=== PATIENT | female | born 1970 | race Caucasian/White ===

== ENCOUNTER 2018-04-27 11:31 | Emergency (ER) | payer SELFPAY ==
[2018-04-27 11:32] VITALS: BP 144/72; PULSE 61; RESP 17; TEMP 37.2; O2SAT 99; BMI 35.9
--- NOTE | 2018-04-27 12:11 | ED.DCSUM_ITS ---
- ER Visit Summary Date of Service: 04/27/18 Chief Complaint: Right lower back pain History of Present Illness: The patient is a 47 F right lower back pain that began Marcos night. Denies any falls or trauma. No fever. No dysuria. No hematuria. Pain does not radiate to her right leg. She has had pain like this before secondary to sciatica and also a kidney stone. Denies any prior back surgery. Worse with movement. Physical Examination: Well-appearing middle-age female. Vital signs are she does not look septic or toxic. H EENT exam unremarkable. Neck nontender. Lungs clear to auscultation bilaterally. Heart regular rhythm no murmur. Abdomen soft and nontender. Normal bowel sounds no. 1. No pulsatile mass. She is moving all 4 extremities. They are neurovascularly intact. 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 Dorsi plantar flexion intact. No cauda equina. No saddle anesthesia. Negative straight leg raise. Back exam her spine is completely nontender. Her right SI joint has tenderness to palpation. No CVA tenderness. Exam is consistent with acute sciatica. Test Results: None Emergency Department Course and Treatment: Patient was offered but deferred any medications at this time. Treatment Plan: Naprosyn for pain. Limited Percocet. Disposition: Discharge Impression: Acute right sciatica This note was generated with [employer] dictation software. It may contain incorrect words, spelling, and punctuation that were not noted in review of the chart prior to signing ED Disposition - Plan for ED Patient: Chief Complaint: Back Referrals: Care Physician,No Primary [Primary Care Provider] -
--- NOTE | 2018-04-27 12:11 | ED.DEP ---
ED Disposition - Plan for ED Patient: Disposition: Home or Assisted Living Chief Complaint: Back Instructions: ED Sciatica Prescriptions: Oxycodone HCl/Acetaminophen [Percocet 5/325] 1 tab PO Q6H PRN PRN 3 Days #12 tab PRN Reason: Pain Naproxen [Naprosyn] 500 mg PO BID PRN PRN #20 tab PRN Reason: Pain Referrals: Levon Spaulding MD [STAFF PHYSICIAN] - Additional Instructions: Naprosyn for pain and inflammation. Percocet for pain. Ice to your right SI joint area. Follow-up if not improving.
== END 2018-04-27 12:37 | disposition home or self-care (01) ==
LOC: ED 12:32
PROVIDERS: Emergency Provider Emergency Medicine
DX: M54.41 Lumbago with sciatica, right side (principal); Z87.442 Personal history of urinary calculi
CPT/HCPCS: 99282

== ENCOUNTER → 2020-05-10 | Outpatient (CLI) | payer MEDICAID, SELFPAY | END | disposition home or self-care (01) | LOC: SL 20:31 | PROVIDERS: PCP Family Medicine; Referring Provider Otolaryngology; Visit Provider Otolaryngology | DX: G47.33 Obstructive sleep apnea (adult) (pediatric) (principal) | CPT/HCPCS: 95810 ==

== ENCOUNTER 2024-02-15 16:12 | Emergency (ER) | payer MEDICAID, SELFPAY ==
[2024-02-15 16:13] VITALS: BP 135/96; PULSE 82; RESP 16; TEMP 36.7; O2SAT 100; BMI 32.6
--- NOTE | 2024-02-15 16:48 | EDS_ITS ---
HPI History of Present Illness Chief Complaint: Abd Pain Informant: patient Narrative Narrative: 53-year-old female presenting to the emergency room with right flank pain. Patient states that yesterday she was out gardening when she came and began to have a pain underneath her lower right mid axillary rib cage. It is worse with movement taking a deep breath and tender to the touch. She denies any vomiting diarrhea dysuria or abdominal pain. She denies any cough or shortness of breath. She denies any leg swelling DVT or PE risk factors. No fever. No rash PFSH PFS Medical History (Updated 02/15/24 @ 18:[address] Marshall Alicia DO) Hypothyroidism Home Medications ?Medication ?Instructions ?Recorded ?Last Taken ?Type fluoxetine 20 mg capsule 20 mg PO DAILY 06/01/20 Unknown History levothyroxine 50 mcg tablet 50 mcg PO DAILY 06/01/20 Unknown History levothyroxine 75 mcg tablet 75 mcg PO DAILY 06/01/20 Unknown History multivitamin (Daily Multi-Vitamin 1 tab PO DAILY 06/01/20 Unknown History tablet) Allergy/AdvReac Type Severity Reaction Status Date / Time No Known Allergies Allergy Verified 02/15/24 16:15 Surgical History No history of previous surgery Social History Smoking Status: Never smoker alcohol intake: current details: Rarely substance use type: does not use ROS ROS ED Constitutional Constitutional ED: Denies chills, fever(s) or weight loss Eyes Eyes: Denies change in vision or diplopia ENT ENT ED: Denies ear pain, rhinorrhea or sore throat Cardiovascular Cardiovascular: Denies chest pain, orthopnea, palpitations or racing heartbeat Respiratory/Chest Respiratory/Chest: Denies cough, dyspnea or orthopnea Gastrointestinal Gastrointestinal: Denies abdominal pain, diarrhea, nausea or vomiting Genitourinary Genitourinary ED: Denies dysuria, hematuria or urinary frequency Musculoskeletal Musculoskeletal: Reports other Details: Right flank pain ; Denies arthralgias or myalgias Integumentary Denies abscess or rash Neurologic Neurologic: Denies headache(s) or weakness Psychiatric Psychiatric: Denies anxiety, depression, suicidal ideation or suicidal thoughts Endocrine Endocrinology: Denies polydipsia, polyphagia or polyuria Allergic/Immunologic Allergic/Immunologic ED: Denies mouth swelling, tongue swelling or urticaria EXAM Physical Exam Const Vital Signs: 02/15/24 16:13 02/15/24 18:12 Temperature 98.1 F Temperature Source Temporal Pulse Rate 82 82 Respiratory Rate 16 16 Blood Pressure 135/96 H 128/91 H Blood Pressure Mean 109 103 Pulse Ox 100 98 Oxygen Delivery Method Room Air Room Air Positive well nourished and well developed General Appearance ED: well developed and NAD HEENT Reports normocephalic, head/scalp atraumatic and moist mucous membranes Eyes PERRL and EOMs intact bilaterally Neck no lymphadenopathy, supple and no JVD Chest Wall Chest Narrative: Patient has very focal tenderness to palpation of the right very low ribs in the midaxillary line. There is no rash noted. Resp normal respiratory effort and clear to auscultation bilaterally Cardio regular rate, regular rhythm and no murmurs GI normal to inspection, nondistended, normoactive bowel sounds and non-tender Palpation: soft Back/Spine no CVA tenderness and normal ROM Extremity normal to inspection General Extremety ED: Negative for edema General Extremity: Negative for edema Neuro oriented x3 and CN's II-XII intact bilaterally Sensorium / Orientation: alert Motor Exam: strength 5/5 throughout Psych mental status grossly normal Mood & Affect: Negative for depressed or tearful Skin no rashes or lesions noted and no wounds MDM MDM MDM Narrative Medical decision making narrative: Differential diagnosis includes liver and gallbladder dysfunction choledo cholithiasis pancreatitis kidney stone UTI pneumonia pleural effusion chest wall strain abdominal muscle strain White count 11.6 with 70.1 neutrophils. Creatinine normal 0.88. Urinalysis with no obvious infection or gross hematuria. LFTs and lipase are normal. CT of the pelvis was obtained which was read by radiology reviewed by myself. Clinically colitis does not fit the clinical picture therefore I feel this is unlikely. Based on the history and physical and the above workup I think this most likely chest wall is could be some costochondritis versus muscular strain. Would recommend conservative treatment with some anti-inflammatories heat and rest. Follow-up if not improving return if worsening or concerns History & Record Review Discussion w/independent historian: Patient Lab Data Attestation: I reviewed the patient's lab results. Labs: Laboratory Results - last 24 hr 02/15/24 17:00 WBC 11.6 H RBC 4.56 Hgb 14.1 Hct 41.8 MCV 91.7 MCH 30.9 MCHC 33.7 RDW Std Deviation 42.9 RDW Coeff of Rikki 12.7 Plt Count 286 MPV 10.1 Immature Gran % (Auto) 0.200 Neut % (Auto) 70.1 H Lymph % (Auto) 20.8 [place] % (Auto) 5.9 Eos % (Auto) 2.7 Baso % (Auto) 0.3 Absolute Neuts (auto) 8.2 H Absolute Lymphs (auto) 2.42 Nucleated RBC % 0 Sodium 139 Potassium 3.6 Chloride 106 Carbon Dioxide 29.0 Anion Gap 4 L BUN 13 Creatinine 0.88 Estim Creat Clear Calc 91.31 Est GFR (MDRD) Af Amer 87 Est GFR (MDRD) Non-Af 72 BUN/Creatinine Ratio 14.8 Glucose 104 Calcium 9.5 Total Bilirubin 0.50 Direct Bilirubin 0.14 AST 20 ALT 29 Alkaline Phosphatase 92 Total Protein 7.7 Albumin 3.7 Globulin 4.0 Lipase 18 Urine Color Yellow Urine Clarity Clear Urine pH 6.5 Ur Specific [place] 1.020 Urine Protein 30 H Urine Glucose (UA) Normal Urine Ketones Negative Urine Occult Blood 25 H Urine Nitrite Negative Urine Bilirubin Negative Urine Urobilinogen 1 H Ur Leukocyte Esterase 25 H Urine RBC 0-5 SEEN Urine WBC 0-5 SEEN Ur Squamous Epith Cells 0-5 SEEN Urine Bacteria 0 SEEN Urine Mucus 1+ Radiography Diagnostic Testing: Clinical Impression(s) from Imaging Studies Abdomen/Pelvis CT 02/15/24 17:43 IMPRESSION: 1. Nonspecific fluid-filled small bowel loops and mild thickening of the ascending colon could be due to enteritis or enterocolitis. 2. Otherwise no focal acute inflammatory process. 3. Hepatomegaly. Electronically Signed: Ankit Chance MD at 18:31 EDT , Discharge Plan Triage Chief Complaint: Abd Pain ED Provider: Marshall Alicia Dx/Rx/DC Orders Clinical Impression: Chest wall muscle strain, Acute flank pain Instructions: ED Chest Wall Strain Prescriptions: No Action levothyroxine 50 mcg tablet 50 mcg PO DAILY Rx Instructions: Taking 4 times a week levothyroxine 75 mcg tablet 75 mcg PO DAILY Rx Instructions: 3 times a week fluoxetine 20 mg capsule 20 mg PO DAILY multivitamin [Daily Multi-Vitamin] Tablet 1 tab PO DAILY Primary Care Provider: Jayda Lindo Referrals: Levon Sabillon MD [Non-Staff] - 10-14 Days if not better Print Language: Belarusian Disposition Disposition: Home, Self Care
[2024-02-15] MEDS: Ketorolac 30 MG/ML Syringe IV (16:56)
[2024-02-15 17:06] LABS: Bacteria 0 SEEN /hpf (None Seen)
[2024-02-15 17:09] LABS: Color, Urine Yellow (Yellow); Glucose, Dipstick Normal (Normal); Ketone-Dipstick Negative (Negative); Leukocyte Esterase-Dipstick 25 /ul (Negative); Nitrite-Dipstick Negative (Negative); Occult Blood-Urine 25 /ul (Negative); Protein-Dipstick 30 mg/dl (Negative); Urine Bilirubin Dipstick Negative (Negative); Urine Clarity Clear (Clear); Urine Urobilinogen 1 mg/dl (Normal); Urine pH 6.5 (5.0 - 8.0)
[2024-02-15 17:10] LABS: Absolute Lymphocyte Count 2.42 X10^3/uL (0.83-4.51); Absolute Neutrophil Count 8.2 X10^3/uL (2.0-7.7); Basophil# 0.04 X10^3/uL; Basophil% 0.3 % (0-1); Eosinophil# 0.32 X10^3/uL; Eosinophils% 2.7 % (0-5); Hematocrit 41.8 % (37-47); Hemoglobin 14.1 g/dL (12.0-15.0); Lymphocyte # 2.42 X10^3/ul (0.83-4.51); Lymphocyte % 20.8 % (19-41); Mean Corp Hgb Conc 33.7 g/dL (32-36); Mean Corpuscular Hgb 30.9 pg (27.0-32.0); Mean Corpuscular Volume 91.7 fL (81-99); Mean Platelet Vol. 10.1 fl (6.2-12.0); Monocyte# 0.69 X10^3/uL; Monocyte% 5.9 % (0-10); NRBC Flagged by Analyzer 0 % (0-5); Neutrophil # 8.15 X10^3/uL (2.7-7.7); Neutrophil % 70.1 % (47-70); Platelet Count 286 K/mm3 (150-450); RBC Distribution Width CV 12.7 % (11.6-14.6); RBC Distribution Width SD 42.9 fl (35.1-43.9); Red Blood Count 4.56 M/mm3 (4.2-5.4); White Blood Count 11.6 K/mm3 (4.4-11.0)
[2024-02-15 17:17] LABS: Mucous, Urine 1+ /hpf (<or=2+); Red Blood Cells-Urine 0-5 SEEN /hpf (0-5); White Blood Cells 0-5 SEEN /hpf (0-5)
[2024-02-15 17:18] LABS: Squamous Epithelial Cells - UA 0-5 SEEN /hpf (5-10)
[2024-02-15 17:26] LABS: AST(SGOT) 20 U/L (15-37); Alanine Aminotransfer ALT/SGPT 29 U/L (13-56); Albumin, Serum 3.7 g/dL (3.2-5.0); Alkaline Phosphatase 92 U/L (45-117); Anion Gap 4 (5-15); BUN 13 mg/dL (7-18); BUN/Creat Ratio 14.8 RATIO (10-20); Bilirubin, Direct 0.14 mg/dL (0.00-0.30); Calcium,Total 9.5 mg/dL (8.5-10.1); Chloride 106 mmol/L (98-107); Creatinine, Serum 0.88 mg/dL (0.55-1.02); EST Glomerular Filtration Rate 72 mL/min (>60); Est Glom Filt Rate - Afr Amer 87 mL/min (>60); Estimated Creatinine Clearance 91.31 ml/min; Glucose 104 mg/dL (74-106); Lipase 18 U/L (13-75); Potassium 3.6 mmol/L (3.5-5.1); Protein, Total 7.7 g/dL (6.4-8.2); Sodium Level 139 mmol/L (136-145)
--- NOTE | 2024-02-15 17:43 | CT_ITS ---
STUDY: CT ABDOMEN AND PELVIS WITH CONTRAST REASON FOR EXAM: Female, 53 years old. Right flank/abd pain RADIATION DOSAGE (If Supplied By Facility): CTDIvol = ( 16.89 ) mGy, DLP = ( 1242.15 ) mGycm TECHNIQUE: IV 100mL Isovue-370 was administered. Transaxial images were obtained from the dome of the diaphragm to the symphysis pubis. Multiplanar coronal and sagittal images were reformatted. The protocol utilizes one or more of the following dose reduction techniques: automated exposure control, adjustment of mA and/or kV according to patient size,and/or use of iterative reconstruction technique. COMPARISON: No relevant prior comparison study available FINDINGS: The visualized lung bases demonstrate mild atelectasis or scarring in the right lower lung. The visualized portions of the heart are within normal limits. Hepatomegaly. Small cyst in left lobe of the liver measuring about 5 mm. Normal gallbladder and extrahepatic biliary system. Normal spleen. Normal pancreas. Normal bilateral adrenal glands. Normal visualized stomach. Nonspecific fluid-filled small bowel loops without evidence of bowel obstruction. Mild thickening of the ascending colon could be due to underdistention. Colitis is possible. There are surgical clips in the region of the appendix consistent with a prior appendectomy. Tortuosity of the abdominal aorta and both iliac arteries without evidence of aneurysm. No retroperitoneal adenopathy. Normal right kidney. Normal left kidney. Normal urinary bladder. No pelvic mass. Normal abdominal wall. Degenerative changes of the lumbar spine. CT/Abdomen/Pelvis W IV Cont ONLY IMPRESSION: 1. Nonspecific fluid-filled small bowel loops and mild thickening of the ascending colon could be due to enteritis or enterocolitis. 2. Otherwise no focal acute inflammatory process. 3. Hepatomegaly. Electronically Signed: Ankit Chance MD at 18:31 EDT ,
[2024-02-15 18:12] VITALS: BP 128/91; PULSE 82; RESP 16; O2SAT 98
== END 2024-02-15 18:53 | disposition home or self-care (01) ==
PROVIDERS: Emergency Provider Emergency Medicine; PCP Family Medicine; Visit Provider Emergency Medicine
DX: S29.011A Strain of muscle and tendon of front wall of thorax, initial encounter (principal); R10.9 Unspecified abdominal pain; Y93.H2 Activity, gardening and landscaping
CPT/HCPCS: 74177; 80048; 80076; 81001; 83690; 85025; 96374; 99282; A4216